=== PATIENT | female | born 1950 | race Caucasian/White ===

== ENCOUNTER → 2018-11-29 | Outpatient (CLI) | payer OTHER | END | disposition home or self-care (01) | LOC: NUCLEAR 08:52 | DX: C53.0 Malignant neoplasm of endocervix (principal) | CPT/HCPCS: 78815; A9552 ==

== ENCOUNTER → 2018-12-04 16:55 | Outpatient (CLI) | payer OTHER | END | disposition home or self-care (01) | LOC: RAD 16:55 | DX: I10 Essential (primary) hypertension (principal); R10.84 Generalized abdominal pain ==

== ENCOUNTER 2018-12-24 08:00 | Inpatient (IN) | payer OTHER ==
[~2018-12-24] VITALS: Ht 154.9 cm; Wt 81.6 kg
[2018-12-24] MEDS ORDERED: METFORMIN HCL500 MG PO (09:13)
[2018-12-24] MEDS ORDERED: COZAAR25 MG PO (09:14)
[2019-01-02] MEDS ORDERED: ULTRACET PO (07:02)
[2019-01-02] MEDS ORDERED: MIRALAX17 GM PO (07:02)
[2019-01-02] MEDS ORDERED: LOVENOX30 MG/0.3 SUBCUTANEO (07:04)
[2019-01-02] MEDS ORDERED: LEVAQUIN500 MG PO (09:05)
== END 2019-01-02 11:46 | DRG 734 ==
LOC: EDSTATUS 08:00 → ADM 08:00 → SURH 12-27 08:00 → O/R 12-27 11:07 → SURG-SUITE 12-27 11:07 → SURH 12-27 16:43 → SURG-SUITE 12-27 17:25 → OB/GYN 01-01 17:13
PROVIDERS: Surgery; ADMIT Obstetrics & Gynecology Gynecologic Oncology
PROC: 0UT20ZZ Resection of Bilateral Ovaries, Open Approach (ICD-10-PCS; 2018-12-27)
PROC: 0UT70ZZ Resection of Bilateral Fallopian Tubes, Open Approach (ICD-10-PCS; 2018-12-27)
PROC: 0WQF0ZZ Repair Abdominal Wall, Open Approach (ICD-10-PCS; 2018-12-27)
PROC: 0KXL0Z6 Transfer Left Abdomen Muscle, Transverse Rectus Abdominis Myocutaneous Flap, Open Approach (ICD-10-PCS; 2018-12-27)
PROC: 0KXK0Z6 Transfer Right Abdomen Muscle, Transverse Rectus Abdominis Myocutaneous Flap, Open Approach (ICD-10-PCS; 2018-12-27)
PROC: 0UT90ZZ Resection of Uterus, Open Approach (ICD-10-PCS; principal; 2018-12-27 17:00)
PROC: 07TC0ZZ Resection of Pelvis Lymphatic, Open Approach (ICD-10-PCS; 2018-12-27 17:00)
PROC: BW24ZZZ Computerized Tomography (CT Scan) of Chest and Abdomen (ICD-10-PCS; 2018-12-29)
PROC: 30233N1 Transfusion of Nonautologous Red Blood Cells into Peripheral Vein, Percutaneous Approach (ICD-10-PCS; 2018-12-29)
DX: C54.1 Malignant neoplasm of endometrium (principal); K43.0 Incisional hernia with obstruction, without gangrene; K42.0 Umbilical hernia with obstruction, without gangrene; D62 Acute posthemorrhagic anemia; K91.89 Other postprocedural complications and disorders of digestive system; K56.7 Ileus, unspecified; D25.9 Leiomyoma of uterus, unspecified; C55 Malignant neoplasm of uterus, part unspecified; I10 Essential (primary) hypertension; E11.40 Type 2 diabetes mellitus with diabetic neuropathy, unspecified; Z79.4 Long term (current) use of insulin

== ENCOUNTER 2020-12-16 08:11 | Day surgery (SDC) | payer OTHER ==
[~2020-12-16 08:11] MED LIST: COZAAR25 MG PO; LEVAQUIN500 MG PO; LOVENOX30 MG/0.3 SUBCUTANEO; METFORMIN HCL500 MG PO; MIRALAX17 GM PO; ULTRACET PO
== END 2020-12-16 14:15 | disposition home or self-care (01) ==
LOC: AMB-ENDOS 08:11
PROVIDERS: ATTEND Surgery
DX: K62.5 Hemorrhage of anus and rectum (principal); K64.8 Other hemorrhoids; Z20.822 Contact with and (suspected) exposure to COVID-19; Z12.11 Encounter for screening for malignant neoplasm of colon

== ENCOUNTER 2021-01-14 07:15 | Outpatient (CLI) | payer OTHER | END 2021-01-14 07:16 | disposition home or self-care (01) | LOC: NUCLEAR 07:15 | PROVIDERS: ATTEND Obstetrics & Gynecology Gynecologic Oncology | DX: C54.1 Malignant neoplasm of endometrium (principal) | CPT/HCPCS: 78815; A9552 ==

== ENCOUNTER 2021-11-26 08:00 | Day surgery (SDC) | payer OTHER | END 2021-11-26 13:45 | disposition home or self-care (01) | LOC: AMB-ENDOS 08:00 | PROVIDERS: ATTEND Surgery | DX: K62.7 Radiation proctitis (principal); K59.09 Other constipation; Z20.822 Contact with and (suspected) exposure to COVID-19; K64.4 Residual hemorrhoidal skin tags; I10 Essential (primary) hypertension; E10.9 Type 1 diabetes mellitus without complications ==

== ENCOUNTER 2022-03-01 07:32 | Outpatient (CLI) | payer OTHER | END 2022-03-01 07:34 | disposition home or self-care (01) | LOC: NUCLEAR 07:32 | DX: C54.1 Malignant neoplasm of endometrium (principal) | CPT/HCPCS: 78816; A9552 ==